=== PATIENT | male | born 1945 | race African-American/Black ===

== ENCOUNTER → 2022-06-10 12:29 | Outpatient (CLI) | payer MEDICARE, OTHER, SELFPAY ==
--- NOTE | ~2022-06-10 | MR_ITS ---
EXAMINATION: MR elbow LT wo con DATE: 06/10/2022 13:28 INDICATION: 2 months of medial sided left elbow pain TECHNIQUE: Magnetic resonance imaging (MRI) of the left elbow was performed without intravenous contr ast. Sequences included coronal, axial, and sagittal PD-weighted FS FSE and coronal, axial, and sagit semaj PD-weighted FSE. COMPARISON: None FINDINGS: Osseous/other: Normal alignment. No fracture. Small focus of subarticular edema-like marrow signal change along the medial side of the articular surface of the trochlea. Additional osteoarthritis with mild nonuniform cartilage loss with smooth chondral surface at the pro ximal radioulnar joint. Tendons: Triceps, biceps brachii and brachialis tendons are normal. There is focal increased signal of less t evans fluid intensity at the medial epicondylar origin of the common flexor tendon wad consistent with mild to moderate tendinopathy without definitive tear. The common extensor tendon wad is normal. Ligaments: The medial and lateral collateral ligament complexes are normal. Cubital tunnel: Cubital tunnel is unremarkable with normal signal and caliber of the ulnar nerve. Fluid: Physiologic amount of fluid the elbow joint. IMPRESSION: 1. Mild to moderate tendinopathy without discrete tear at the medial epicondylar origin of the common flexor tendon wad. 2. Mild osteoarthritis at the left elbow. Reviewed, dictated and finalized at location A. IMPRESSION: 1. Mild to moderate tendinopathy without discrete tear at the medial epicondyla r origin of the common flexor tendon wad. 2. Mild osteoarthritis at the left elbow.
== END ==
PROVIDERS: PCP Family Medicine; Visit Provider Specialist
DX: M19.022 Primary osteoarthritis, left elbow (principal)
CPT/HCPCS: 73221

== ENCOUNTER → 2022-10-20 12:40 | Outpatient (CLI) | payer MEDICARE, OTHER, SELFPAY ==
--- NOTE | ~2022-10-20 | XR_ITS ---
XR chest 2V DATE: 10/20/2022 12:56 INDICATION: Chronic cough for several years TECHNIQUE: 2 views COMPARISON: 08/06/2019 PA and lateral chest FINDINGS: Heart size is normal. Is aortic unfolding. No hilar or mediastinal enlargement. Bilateral hyperinflation. No pulmonary infiltrate or consolidation, pleural effusion or pulmonary vas cular congestion or pneumothorax. There is degenerative spurring of the thoracic spine. IMPRESSION: Moderate hyperinflation; no active cardiopulmonary disease Reviewed, dictated and finalized at location B. [employer]
== END ==
PROVIDERS: PCP Family Medicine; Visit Provider Physician Assistant
DX: R05.3 Chronic cough (principal); R91.8 Other nonspecific abnormal finding of lung field
CPT/HCPCS: 71046

== ENCOUNTER → 2023-01-12 12:21 | Outpatient (CLI) | payer MEDICARE, OTHER, SELFPAY ==
--- NOTE | ~2023-01-12 | MR_ITS ---
MRI of the left elbow CLINICAL HISTORY: Pain TECHNIQUE: Axial STIR, proton-density, and proton-density fat-sat images, coronal proton-density and STIR images, and sagittal proton-density and STIR images were performed. FINDINGS: Ulnar collateral ligament is intact. Radial collateral ligament and the lateral ulnar colla teral ligament are intact. There is minimal tendinosis at the common flexor tendon origin. Common ext ensor tendon origin is unremarkable. Bone marrow signals are essentially unremarkable. No osseous or articular abnormality evident at the elbow joint. No significant joint effusion. Biceps and brachialis tendons are intact. There is minimal tendinosis of the distal triceps tendon. T here is olecranon bursitis, with fluid distended bursa measuring approximately 3.5 cm in length, and 1.4 x 0.8 cm in transverse dimensions. IMPRESSION: Olecranon bursitis, as detailed above. Minimal tendinosis of the common flexor tendon origin and distal triceps tendon. Reviewed, dictated and finalized at location . 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 Minimal tendinosis of the common flexor tendon origin and distal triceps tendon .
== END ==
PROVIDERS: PCP Family Medicine; Visit Provider Specialist
DX: M25.522 Pain in left elbow (principal); M71.522 Other bursitis, not elsewhere classified, left elbow
CPT/HCPCS: 73221

== ENCOUNTER 2023-06-01 13:01 | Outpatient (CLI) | payer MEDICARE, OTHER, SELFPAY | END 2023-06-01 13:02 | disposition home or self-care (01) | LOC: ANHAUDIO 13:02 | PROVIDERS: PCP Family Medicine; Visit Provider Family Medicine | DX: H90.3 Sensorineural hearing loss, bilateral (principal) | CPT/HCPCS: 92557; 92567 ==

== ENCOUNTER 2023-09-10 13:35 | Outpatient (CLI) | payer MEDICARE, OTHER, SELFPAY ==
--- NOTE | ~2023-09-10 | US_ITS ---
EXAMINATION: US carotid duplex BI DATE: 09/10/2023 14:24 INDICATION: Transient cerebral ischemic attack TECHNIQUE: Grayscale, color Doppler, and pulsed Doppler images of the cervical carotid arteries were obtained. The degree of vessel stenosis is placed in one of the following categories: normal, <50%, 5 0-69%, >=70% but less than near-occlusion, near-occlusion, or total occlusion. Note that percent sten osis relative to normal distal artery lumen diameter is indirectly measured from velocity measurement s as described by Donte, et al. Radiology 2003; 229:340-346. Notes: Normal: Peak systolic velocity <125 centimeters/sec and no plaque <50%. Peak systolic velocity <125 ( EDV <40; ICA/CCA PSV ratio <2.0; used these factors only a tandem lesions or low cardiac output or co ntralateral disease) 50-69 %: PSV 125-230 (EDV 40-100; ratio 2-4) >= 70% but less than near occlusion: PSV greater than 230 (EDV > 100; ratio> 4.0) Near Occlusion: PSV that is variable; markedly narrowed lumen Occlusion: Absent flow on color/spectral Doppler and no lumen on coronel scale. COMPARISON: Ultrasound dated 01/22/2017. FINDINGS: RIGHT: The right common carotid artery (CCA) peak systolic velocity (PSV) is 96 cm/s. The right internal car otid artery (ICA) PSV is 108 cm/s. The right ICA end-diastolic velocity (EDV) is 31 cm/s. The right I CA/CCA PSV ratio is 1.4. The external carotid artery (ECA) PSV is 137 cm/s. There is antegrade flow i n the right vertebral artery. LEFT: The left CCA PSV is 98 cm/s. The left ICA PSV is 84 cm/s. The left ICA EDV is 22 cm/s. The left ICA/C CA PSV ratio is 1.2. The ECA PSV is 113 cm/s. There is antegrade flow in the left vertebral artery. IMPRESSION: 1. Less than 50% stenosis in the right internal carotid artery by sonographic criteria. 2. Less than 50% stenosis in the left internal carotid artery by sonographic criteria. Reviewed, dictated and finalized at location B. IMPRESSION: 1. Less than 50% stenosis in the right internal carotid artery by sonographic c willy. 2. Less than 50% stenosis in the left internal carotid artery by sonographic cr orly.
== END 2023-09-10 13:36 | disposition home or self-care (01) ==
PROVIDERS: PCP Family Medicine; Visit Provider Family Medicine
DX: I65.23 Occlusion and stenosis of bilateral carotid arteries (principal)
CPT/HCPCS: 93880

== ENCOUNTER 2024-08-29 12:15 | Emergency (ER) | payer MEDICARE, OTHER, SELFPAY ==
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
[2024-08-29 12:27] VITALS: PULSE 63; RESP 16; TEMP 36.2; O2SAT 100
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
== END 2024-08-29 15:07 | disposition home or self-care (01) ==
PROVIDERS: Emergency Provider Emergency Medicine; PCP Family Medicine
DX: S09.90XA Unspecified injury of head, initial encounter (principal); M54.2 Cervicalgia; W22.8XXA Striking against or struck by other objects, initial encounter
CPT/HCPCS: 70450; 72125; 99284

== ENCOUNTER 2025-01-15 14:00 | Emergency (ER) | payer MEDICARE, OTHER, SELFPAY ==
[2025-01-15 14:07] VITALS: BP 169/80; PULSE 94; RESP 18; TEMP 36.9; O2SAT 100
--- NOTE | 2025-01-15 16:23 | ED.NAVMDI ---
HPI - Nausea/Vomiting/Diarrhea General Chief complaint: Nausea/Vomiting/Diarrhea <Maye Sadler APRN - Last Filed: 01/15/25 16:30> Stated complaint: diarrhea <Maye Sadler APRN - Last Filed: 01/15/25 16:30> Time Seen by Provider: 01/15/25 16:15 <Maye Sadler APRN - Last Filed: 01/15/25 16:30> Focused HPI: Patient is a 79-year-old male who presents to the ER with complaints of abdominal discomfort, mild shortness of breath, back pain, increased weakness, nausea and diarrhea. He reports his symptoms started last night after drinking coffee and eating a piece of chocolate cake. Patient denies any chest pain, gastric reflux-like symptoms, recent fevers, urinary symptoms. He denies any medical history related to this ER visit and endorses only benign prostate hypertrophy. GENERAL: Well-appearing, well-nourished, and in no acute distress. HEAD: Normocephalic, atraumatic. CHEST: Clear to auscultation. ?No respiratory distress. HEART: Regular rate and rhythm.? NEURO: ?Alert and oriented x3. Patient screened in triage and initial orders placed.? ?Additional care and disposition to be based upon?diagnostic testing and treatment. <Maye Sadler APRN - Last Filed: 01/15/25 16:30> History of Present Illness HPI Narrative: 9-year-old male presents to the ED with at bedside for 1 day of N/V/D, generalized weakness and malaise. Patient reporting some abdominal discomfort and hiccuping/belching. He reports a cough that is nonproductive. Patient's at bedside states the patient has had several bouts of watery diarrhea that is foul smelling. He had a low-grade fever earlier today but that has since resolved. He has not taken anything for symptoms. He notes his was ill with COVID 2 weeks ago. He denies recent antibiotic use, travel, recent surgeries or hospitalizations, history of C diff. <Vania Hou PA-C - Last Filed: 01/15/25 19:04> Related Data Allergies/Adverse reactions: Allergies Allergy/AdvReac Type Severity Reaction Status Date / Time phenazopyridine Allergy Mild Unknown Verified 09/06/24 14:16 sulfamethoxazole Allergy Mild Unknown Verified 09/06/24 14:16 trimethoprim Allergy Mild Unknown Verified 09/06/24 14:16 latex Allergy Unknown Unknown Verified 09/06/24 14:16 sulfamethizole Allergy Unknown Unknown Verified 09/06/24 14:16 vardenafil Allergy Unknown Unknown Verified 09/06/24 14:16 <Maye Sadler, KIMBERLY - Last Filed: 01/15/25 16:30> Review of Systems Review of Systems: All systems reviewed & are unremarkable except as noted in HPI and below <Vania Hou PA-C - Last Filed: 01/15/25 19:04> PMFSH Past Medical History Medical History: Medical History Chronic cough Tinnitus, bilateral Elevated PSA Erectile dysfunction <Maye Sadler APRN - Last Filed: 01/15/25 16:30> Family History Family History: Family History Mother Lupus Mother Family history of lupus erythematosus <Maye Sadler APRN - Last Filed: 01/15/25 16:30> Social History Social History: Social History Smoking status: Never smoker Tobacco type: pipe and cigars Second hand tobacco smoke exposure: Yes Alcohol intake: current Alcohol use details: occasionally Substance use: former Substance use type: marijuana Living arrangements: with family Occupation/Education: retired Gender identity (if verbalized by the patient): Male Sexual Orientation (if Verbalized by the Patient): Straight or Heterosexual Spiritual care concerns: No <Maye Sadler, KIMBERLY - Last Filed: 01/15/25 16:30> Exam Narrative: GENERAL: Well-appearing, well-nourished, and in no acute distress. HEAD: Normocephalic, atraumatic. EYES: PERRLA and EOMI. ENT: Nares clear, no rhinorrhea or epistaxis. Mucous membranes moist. NECK: Supple. CHEST: Clear to auscultation. No respiratory distress. HEART: Regular rate and rhythm. No murmur heard. Normal peripheral pulses. ABDOMEN: Soft, nontender, nondistended, normal active bowel sounds. No rebound, guarding rigidity. No CVA tenderness EXTREMITIES: Normal range of motion. No edema. SKIN: Warm, dry, no rash. NEURO: No focal deficits. Alert and oriented x3 <Vania Hou PA-C - Last Filed: 01/15/25 19:04> Course Vital Signs Vital signs: Vital Signs Temperature 98.4 F 01/15/25 14:07 Pulse Rate 94 01/15/25 14:07 Respiratory Rate 18 01/15/25 14:07 Blood Pressure 169/80 H 01/15/25 14:07 Pulse Oximetry 100 01/15/25 14:07 Temperature 98.4 F 01/15/25 14:07 Pulse Rate 99 01/15/25 18:30 Respiratory Rate 22 H 01/15/25 18:30 Blood Pressure 151/81 H 01/15/25 18:29 Pulse Oximetry 100 01/15/25 18:30 <Maye Sadler APRN - Last Filed: 01/15/25 16:30> Vital Signs Temperature 98.4 F 01/15/25 14:07 Pulse Rate 94 01/15/25 14:07 Respiratory Rate 18 01/15/25 14:07 Blood Pressure 169/80 H 01/15/25 14:07 Pulse Oximetry 100 01/15/25 14:07 Temperature 98.4 F 01/15/25 14:07 Pulse Rate 99 01/15/25 18:30 Respiratory Rate 22 H 01/15/25 18:30 Blood Pressure 151/81 H 01/15/25 18:29 Pulse Oximetry 100 01/15/25 18:30 <Vania Hou PA-C - Last Filed: 01/15/25 19:04> MDM - Nausea/Vomiting/Diarrhea MDM Narrative Medical decision making narrative: 79-year-old male presents to the emergency department for generalized malaise, N/V/D for the past day. Vitals with elevated blood pressure 169/88, otherwise unremarkable. Exam significant for the above. Notably lung sounds are clear, abdomen is soft and nontender. Lab work obtained shows no leukocytosis or anemia. Chemistries are largely unremarkable. Lipase is normal. Viral swabs positive for COVID. EKG shows sinus rhythm with occasional PVCs, nonspecific T-wave abnormality, normal interval, normal QRS duration, normal QTC, otherwise no ischemic changes. Troponin is within normal limits. Chest x-ray shows coarse interstitial lung markings without focal infiltrate or effusion. His is bedside is requesting testing for C diff. Unfortunately patient was unable to provide a stool sample. He has no risk factors for C diff. Patient family updated on results. Patient received IV fluids, Zofran, GI cocktail and Pepcid with improvement. Discussed findings above. He does not appear to be fluid overloaded to explain the coarse interstitial markings on chest x-ray. I am concerned he may have findings consistent with atypical pneumonia given positive COVID results. Will start the patient on azithromycin and Augmentin and have him follow closely with his PCP. Return precautions discussed. He is agreeable with the plan verbalized understanding. Discharged in stable condition. <Vania Hou PA-C - Last Filed: 01/15/25 19:04> Lab Data Result diagrams: 01/15/25 16:37 01/15/25 16:37 <Maye Sadler APRN - Last Filed: 01/15/25 16:30> Labs: Lab Results 01/15/25 01/15/25 Range/Units 16:37 18:04 WBC 7.5 (4.5-10.0) K/mm3 RBC 4.56 L (4.6-6.20) M/mm3 Hgb 14.4 (14.0-18.0) g/dL Hct 42.4 (42.0-52.0) % MCV 93.0 (80-100) fl MCH 31.6 (26-34) pg MCHC 34.0 (32-36) g/dl RDW 13.0 (11.5-14.5) % Plt Count 209 (150-375) k/mm3 MPV 8.7 (7.4-10.4) fl Immature Gran % (Auto) Not Reportable Neut % (Auto) Not Reportable Lymph % (Auto) Not Reportable [place] % (Auto) Not Reportable Eos % (Auto) Not Reportable Baso % (Auto) Not Reportable Lymph # (Auto) Not Reportable [place] # (Auto) Not Reportable Eos # (Auto) Not Reportable Baso # (Auto) Not Reportable Abs Immat Gran (auto) Not Reportable Absolute Neuts (auto) Not Reportable Absolute Nucleated RBC Not Reportable Total Counted 100 Neutrophils % (Manual) 95 H (46-73) % Band Neutrophils % 3 (0-6) % Lymphocytes % (Manual) 1.0 L (18-44) % Monocytes % (Manual) 1 L (3-9) % Nucleated RBC % Not Reportable Abs Neuts (Manual) 7.35 H (1.3-6.7) K/mm3 Abs Lymphs (Manual) 0.07 L (1.1-4.5) K/mm3 Abs Monocytes (Manual) 0.07 L (0.1-0.90) K/mm3 Platelet Estimate Adequate (Adequate) Schistocytes None seen Sodium 139 (137-145) mmol/L Potassium 4.5 (3.4-5.0) mmol/L Chloride 102 (98-107) mmol/L Carbon Dioxide 24 (22-30) mmol/L Anion Gap 13 H (4-12) mmol/L BUN 15 (9-20) mg/dL Creatinine 0.86 (0.7-1.3) mg/dL Estim Creat Clear Calc 61 ml/min Estimated GFR > 60 (59 - ) Glucose 152 H (65-110) mg/dL Calcium 9.0 (8.4-10.2) mg/dL Total Bilirubin 0.7 (0.2-1.3) mg/dL AST 30 (17-59) U/L ALT 34 (6-50) U/L Alkaline Phosphatase 50 (38-126) U/L Troponin I < 0.012 (0.000-0.034) ng/mL Total Protein 8.0 (6.3-8.2) g/dL Albumin 4.4 (3.5-5.1) g/dL Lipase 28 (23-300) U/L Urine Color Yellow (Yellow) Urine Appearance Cloudy H (Clear) Urine pH 5.0 (5.0-9.0) Ur Specific [place] 1.033 (1.001-1.035) Urine Protein 1+ H (Negative) mg/dL Urine Glucose (UA) Trace H (Negative) mg/dL Urine Ketones Trace H (Negative) mg/dL Ur Blood (Man) Negative (Negative) Urine Nitrate Negative (Negative) Urine Bilirubin Negative (Negative) Urine Urobilinogen 0.2 (<2.0) mg/dL Leukocyte Esterase Rfl Negative (Negative) RALPH/UL Urine RBC 0-2 (0-2) /hpf Urine WBC 0-5 (0-3) /hpf Ur Squamous Epith Cells None seen (Few) /hpf Urine Bacteria None seen /hpf Urine Casts 0-2 Influenza A (RT-PCR) Negative (Negative) Influenza B (RT-PCR) Negative (Negative) RSV (RT-PCR) Negative (Negative) SARS-CoV-2 RNA (RT-PCR) Positive A (Negative) <Maye Sadler, [employer] - Last Filed: 01/15/25 16:30> Lab Results 01/15/25 01/15/25 Range/Units 16:37 18:04 WBC 7.5 (4.5-10.0) K/mm3 RBC 4.56 L (4.6-6.20) M/mm3 Hgb 14.4 (14.0-18.0) g/dL Hct 42.4 (42.0-52.0) % MCV 93.0 (80-100) fl MCH 31.6 (26-34) pg MCHC 34.0 (32-36) g/dl RDW 13.0 (11.5-14.5) % Plt Count 209 (150-375) k/mm3 MPV 8.7 (7.4-10.4) fl Immature Gran % (Auto) Not Reportable Neut % (Auto) Not Reportable Lymph % (Auto) Not Reportable [place] % (Auto) Not Reportable Eos % (Auto) Not Reportable Baso % (Auto) Not Reportable Lymph # (Auto) Not Reportable [place] # (Auto) Not Reportable Eos # (Auto) Not Reportable Baso # (Auto) Not Reportable Abs Immat Gran (auto) Not Reportable Absolute Neuts (auto) Not Reportable Absolute Nucleated RBC Not Reportable Total Counted 100 Neutrophils % (Manual) 95 H (46-73) % Band Neutrophils % 3 (0-6) % Lymphocytes % (Manual) 1.0 L (18-44) % Monocytes % (Manual) 1 L (3-9) % Nucleated RBC % Not Reportable Abs Neuts (Manual) 7.35 H (1.3-6.7) K/mm3 Abs Lymphs (Manual) 0.07 L (1.1-4.5) K/mm3 Abs Monocytes (Manual) 0.07 L (0.1-0.90) K/mm3 Platelet Estimate Adequate (Adequate) Schistocytes None seen Sodium 139 (137-145) mmol/L Potassium 4.5 (3.4-5.0) mmol/L Chloride 102 (98-107) mmol/L Carbon Dioxide 24 (22-30) mmol/L Anion Gap 13 H (4-12) mmol/L BUN 15 (9-20) mg/dL Creatinine 0.86 (0.7-1.3) mg/dL Estim Creat Clear Calc 61 ml/min Estimated GFR > 60 (59 - ) Glucose 152 H (65-110) mg/dL Calcium 9.0 (8.4-10.2) mg/dL Total Bilirubin 0.7 (0.2-1.3) mg/dL AST 30 (17-59) U/L ALT 34 (6-50) U/L Alkaline Phosphatase 50 (38-126) U/L Troponin I < 0.012 (0.000-0.034) ng/mL Total Protein 8.0 (6.3-8.2) g/dL Albumin 4.4 (3.5-5.1) g/dL Lipase 28 (23-300) U/L Urine Color Yellow (Yellow) Urine Appearance Cloudy H (Clear) Urine pH 5.0 (5.0-9.0) Ur Specific [place] 1.033 (1.001-1.035) Urine Protein 1+ H (Negative) mg/dL Urine Glucose (UA) Trace H (Negative) mg/dL Urine Ketones Trace H (Negative) mg/dL Ur Blood (Man) Negative (Negative) Urine Nitrate Negative (Negative) Urine Bilirubin Negative (Negative) Urine Urobilinogen 0.2 (<2.0) mg/dL Leukocyte Esterase Rfl Negative (Negative) RALPH/UL Urine RBC 0-2 (0-2) /hpf Urine WBC 0-5 (0-3) /hpf Ur Squamous Epith Cells None seen (Few) /hpf Urine Bacteria None seen /hpf Urine Casts 0-2 Influenza A (RT-PCR) Negative (Negative) Influenza B (RT-PCR) Negative (Negative) RSV (RT-PCR) Negative (Negative) SARS-CoV-2 RNA (RT-PCR) Positive A (Negative) <Vania Hou PA-C - Last Filed: 01/15/25 19:04> Discharge Plan Discharge Clinical Impression: COVID-19 CAP (community acquired pneumonia) Qualifiers: Laterality: unspecified laterality Qualified Code(s): J18.9 - Pneumonia, unspecified organism <Maye Sadler APRN - Last Filed: 01/15/25 16:30> Patient Disposition: Home, Self-Care <Maye Sadler APRN - Last Filed: 01/15/25 16:30> Condition: Stable <Maye Sadlre APRN - Last Filed: 01/15/25 16:30> Instructions: Antibiotic Form, Pneumonia (ED), COVID-19 (Coronavirus Disease 2019) (ED) <Maye Sadler APRN - Last Filed: 01/15/25 16:30> Additional Instructions: You tested positive today for COVID. Chest x-ray shows abnormal findings which may be consistent with an atypical pneumonia as discussed. You have been treated for pneumonia with antibiotics, please take these as directed. Drink plenty of fluids including water, Gatorade and Pedialyte. Take Tylenol as needed for body aches and fevers. I have also provided Pepcid for indigestion, take this as directed. Return to the emergency department if you are unable to tolerate food or fluids, developed worsening cough or shortness of breath, or other concerning symptoms. <Maye Sadler APRN - Last Filed: 01/15/25 16:30> Patient Language: [place] <Maye Sadler APRN - Last Filed: 01/15/25 16:30> Prescriptions: New amoxicillin-pot clavulanate 875-125 mg tablet 1 tablet PO Q12H Qty: 14 0RF azithromycin 250 mg tablet See Rx Instructions .ROUTE .COMPLEX Qty: 6 0RF Rx Instructions: For 250 mg dose pack: take 500 mg today (day 1), then 250 mg for 4 days (days 2-5) famotidine 20 mg tablet 20 mg PO DAILY Qty: 14 0RF No Action albuterol sulfate [Ventolin HFA] 90 mcg/actuation HFA aerosol inhaler 1 puff inhalation Q4H PRN (Reason: shortness of breath or wheezing) Qty: 8.5 0RF <Maye Sadler APRN - Last Filed: 01/15/25 16:30> Follow-up/Referrals: Jarrell Chandra MD [Primary Care Provider] - <Maye Sadler APRN - Last Filed: 01/15/25 16:30>
[2025-01-15 16:44] LABS: Hematocrit 42.4 % (42.0-52.0); Hemoglobin 14.4 g/dL (14.0-18.0); Mean Corpuscular Hemoglobin 31.6 pg (26-34); Mean Platelet Volume 8.7 fl (7.4-10.4); Platelet Count Result 209 k/mm3 (150-375); Red Blood Count 4.56 M/mm3 (4.6-6.20); White Blood Count 7.5 K/mm3 (4.5-10.0)
[2025-01-15 16:53] LABS: Alanine Aminotransferase 34 U/L (6-50); Albumin Level 4.4 g/dL (3.5-5.1); Alkaline Phosphatase 50 U/L (38-126); Anion Gap 13 mmol/L (4-12); Aspartate Amino Transferase 30 U/L (17-59); Bilirubin,Total 0.7 mg/dL (0.2-1.3); Blood Urea Nitrogen 15 mg/dL (9-20); Carbon Dioxide 24 mmol/L (22-30); Chloride 102 mmol/L (98-107); Estimated CRCL calculation 61 ml/min; Estimated Glomerular Filt Rate > 60; Glucose 152 mg/dL (65-110); Lipase 28 U/L (23-300); Potassium 4.5 mmol/L (3.4-5.0); Sodium 139 mmol/L (137-145)
[2025-01-15 17:05] VITALS: BP 160/93; PULSE 96; RESP 18; O2SAT 100
[2025-01-15 17:05] LABS: Troponin I < 0.012 ng/mL (0.000-0.034)
[2025-01-15 17:09] LABS: Band Neutrophils Percent 3 % (0-6); Lymphocytes Absolute Manual 0.07 K/mm3 (1.1-4.5); Monocytes Absolute Manual 0.07 K/mm3 (0.1-0.90); Monocytes Percent Manual 1 % (3-9); Neutrophils Absolute Manual 7.35 K/mm3 (1.3-6.7); Neutrophils Percent Manual 95 % (46-73); Total Cells Counted 100
[2025-01-15 17:10] LABS: Platelet Estimate Adequate (Adequate)
[2025-01-15 17:12] LABS: Schistocytes None Seen
[2025-01-15 17:26] LABS: Influenza A QL RT-PCR Negative (Negative); Influenza B QL RT-PCR Negative (Negative); RSV RNA, RT-PCR Negative (Negative); SARS-CoV-2 RNA PCR Positive (Negative)
[2025-01-15 18:05] VITALS: PULSE 96; RESP 22; O2SAT 100
[2025-01-15 18:13] LABS: Add Urine Microscopic? YES; Appearance Urine Cloudy (Clear); Bacteria Urine None Seen /hpf; Bilirubin Urine Negative (Negative); Blood Urine Negative (Negative); Color Urine Yellow (Yellow); Glucose Urine UA Trace mg/dL (Negative); Ketones Urine Trace mg/dL (Negative); Leukocyte Esterase Ur Negative LEU/UL (Negative); Nitrate Urine Negative (Negative); Non Pathogenic Casts 0-2; Protein Urine 1+ mg/dL (Negative); RBC Urine 0-2 /hpf (0-2); Specific Grav Ur 1.033 (1.001-1.035); Squamous Epithelial Cell Urine None Seen /hpf (Few); Urobilinogen Urine 0.2 mg/dL (<2.0); WBC Urine 0-5 /hpf (0-3)
[2025-01-15 18:15] VITALS: PULSE 99; RESP 21; O2SAT 100
[2025-01-15 18:29] VITALS: BP 151/81; PULSE 100; RESP 22; O2SAT 100
[2025-01-15] MEDS: SODIUM CHLORIDE 0.9% IV 1,000 ML 999 ML IV CONT (18:29)
[2025-01-15] MEDS: ONDANSETRON INJ 4 MG/2 ML VIAL IV PUSH (18:29)
[2025-01-15] MEDS: BELLADONNA ALK/PHENOB ELIX 10 ML, MAG HYDROX/ALUMINUM HYD/SIMETH 30 ML, LIDOCAINE 2% VI... PO (18:29)
[2025-01-15] MEDS: FAMOTIDINE 20 MG/2 ML VIAL IV PUSH (18:29)
[2025-01-15 18:30] VITALS: PULSE 99; RESP 22; O2SAT 100
== END 2025-01-15 19:26 | disposition home or self-care (01) ==
PROVIDERS: Registered Nurse; Emergency Provider Physician Assistant; PCP Family Medicine
DX: U07.1 COVID-19 (principal); J18.9 Pneumonia, unspecified organism; Z77.22 Contact with and (suspected) exposure to environmental tobacco smoke (acute) (chronic); I49.3 Ventricular premature depolarization; R94.31 Abnormal electrocardiogram [ECG] [EKG]
CPT/HCPCS: 36415; 71045; 80053; 81001; 83690; 84484; 85025; 87637; 93005; 96361; 96374; 96375; 99284; A9270; J2405; J7030

== ENCOUNTER 2025-09-18 00:41 | Day surgery (SDC) | payer MEDICARE, OTHER, SELFPAY ==
[2025-09-13 13:31] VITALS: BMI 24.8
[2025-09-18 09:45] VITALS: BP 130/71; PULSE 65; RESP 18; TEMP 36.3; O2SAT 100
[2025-09-18] MEDS: LACTATED RINGERS 1,000 ML 150 ML IV CONT (09:56)
--- NOTE | 2025-09-18 10:15 | WPDANESEPPF ---
Anes - Initial Pre Proc Eval Procedure: Operation Date: 09/18/25 11:00 Proposed Procedures p Screening Colonoscopy - Baltazar Kwong MD Date/Time: 09/18/25 10:15 Surgeon: Baltazar Kwong MD Pre Op Diagnosis: Encounter for screening for malignant neoplasm of Patient Data Age: 80 Gender: M Height: 1.7 m Weight: 70 kg Last Vital Signs Temp 97.3 F L 09/18/25 09:45 Pulse 65 09/18/25 09:45 Resp 18 09/18/25 09:45 BP 130/71 09/18/25 09:45 Pulse Ox 100 09/18/25 09:45 O2 Del Method Room Air 09/18/25 09:45 Allergies Allergy/AdvReac Type Severity Reaction Status Date / Time phenazopyridine Allergy Mild Unknown Verified 09/18/25 09:44 sulfamethoxazole Allergy Mild Unknown Verified 09/18/25 09:44 trimethoprim Allergy Mild Unknown Verified 09/18/25 09:44 sulfamethizole Allergy Unknown Unknown Verified 09/18/25 09:44 vardenafil Allergy Unknown Unknown Verified 09/18/25 09:44 Home Medications ?Medication ?Instructions ?Recorded ?Confirmed ?Type albuterol sulfate 90 mcg/actuation 1 puff inhalation Q4H PRN 04/27/23 09/13/25 Rx aerosol inhaler (Ventolin HFA) shortness of breath or wheezing #8.5 grams finasteride 5 mg tablet 5 mg PO DAILY 09/13/25 09/13/25 History Patient hx anesthesia problems: none Family hx anesthesia problems: none Results Review: All pre-operative results and documents have been reviewed as part of the pre-operative evaluation. [facility], [facility] Past Medical History Medical History Chronic cough Tinnitus, bilateral Elevated PSA Erectile dysfunction Family History Family History Mother Lupus Mother Family history of lupus erythematosus Social History Social History Social History: Years smoked: 3 Smoking status: Former smoker Tobacco type: cigarettes Second hand tobacco smoke exposure: Yes Alcohol intake: current Alcohol use details: Rarely Substance use: former Substance use type: does not use Current Housing: I Have Housing Concerned About Future Housing: No Difficulty Paying Gas/Electric Bills: No Difficulty Paying for Meds: No Currently Unemployed: YES Education: Don't Know Difficulty w/ Childcare or Family Care: No Living arrangements: with family Additional living arrangements comments: with sp Occupation/Education: retired Gender identity (if verbalized by the patient): Male Sexual Orientation (if Verbalized by the Patient): Straight or Heterosexual Spiritual care concerns: No Anes - Eval Final PreProcedure Day of Procedure 09/18/25 10:15 Patient weight: normal Lungs: normal air movement Airway: Mallampati scale class II and special considerations (Partial upper and lower removed. ) Neurological: alert and oriented Last oral intake: >/= 8 hours ASA classification: II Emergent: no Anesthetic plan: proceed Anesthesia type and monitoring: general GIVS Results Review: All pre-operative results and documents have been reviewed as part of the pre-operative evaluation. JED on CPAP, mild asthma but very stable. Pt active w working at [employer], walking a lot there, no cp or sob. Informed Consent: The patient's anesthetic plan and its attendant risks and benefits were discussed with the patient/family/POA. Questions were solicited and answers provided to the satisfaction of the patient/family/POA.
--- NOTE | 2025-09-18 10:19 | PM.IMHP ---
H&P: HPI History of Present Illness Date/Time: 09/18/25 10:19 Chief Complaint: Screening colonoscopy Narrative: This is the patient's 2nd screening colonoscopy. The first one was 10 years ago. There are no GI symptoms and there is no family history of colorectal cancer. Review of Systems Review of Systems: All systems reviewed & are unremarkable except as noted in HPI and below PMFSH Past Medical History Medical History Chronic cough Tinnitus, bilateral Elevated PSA Erectile dysfunction Family History Family History Mother Lupus Mother Family history of lupus erythematosus Social History Social History Social History: Years smoked: 3 Smoking status: Former smoker Tobacco type: cigarettes Second hand tobacco smoke exposure: Yes Alcohol intake: current Alcohol use details: Rarely Substance use: former Substance use type: does not use Current Housing: I Have Housing Concerned About Future Housing: No Difficulty Paying Gas/Electric Bills: No Difficulty Paying for Meds: No Currently Unemployed: YES Education: Don't Know Difficulty w/ Childcare or Family Care: No Living arrangements: with family Additional living arrangements comments: with sp Occupation/Education: retired Gender identity (if verbalized by the patient): Male Sexual Orientation (if Verbalized by the Patient): Straight or Heterosexual Spiritual care concerns: No Meds Home Medications and Allergies Home Medications ?Medication ?Instructions ?Recorded ?Confirmed ?Type albuterol sulfate 90 mcg/actuation 1 puff inhalation Q4H PRN 04/27/23 09/13/25 Rx aerosol inhaler (Ventolin HFA) shortness of breath or wheezing #8.5 grams finasteride 5 mg tablet 5 mg PO DAILY 09/13/25 09/13/25 History Allergies Allergy/AdvReac Type Severity Reaction Status Date / Time phenazopyridine Allergy Mild Unknown Verified 09/18/25 09:44 sulfamethoxazole Allergy Mild Unknown Verified 09/18/25 09:44 trimethoprim Allergy Mild Unknown Verified 09/18/25 09:44 sulfamethizole Allergy Unknown Unknown Verified 09/18/25 09:44 vardenafil Allergy Unknown Unknown Verified 09/18/25 09:44 Vital Signs Vital Signs - 24 hr 09/18/25 09:45 Temperature 97.3 F L Pulse Rate 65 Respiratory Rate 18 Blood Pressure 130/71 Pulse Oximetry 100 Oxygen Delivery Room Air Exam Const: General: cooperative and healthy appearing Resp: Effort & Inspection: normal respiratory effort and able to speak in complete sentences Auscultation: clear to auscultation bilaterally Cardio: Rate: regular rate Rhythm: regular rhythm GI: Inspection: normal to inspection GI Palp: No No hepatosplenomegaly present Auscultation: normal bowel sounds Rectal Exam: deferred Skin: General skin exam: normal color Psych: Appearance: grossly normal Mental Status: mental status grossly normal Assessment and Plan Assessment and plan (1) Colon cancer screening: Code(s): Z12.11 - Encounter for screening for malignant neoplasm of colon Status: Acute Assessment and Plan: The patient is deemed a good candidate for the procedure. Consent signed. Will proceed.
--- NOTE | 2025-09-18 11:09 | S_PTH ---
PATIENT: Eliseo Martínez Sr. LOC: [facility] Fam#:[id number] AGE/SX: 80/M ROOM: RE09/18/[address]: Baltazar Kwong MD : 1945 BED: DIS: 09/18/2025 SPEC #: [id number] RECD: 09/18/25 13:23 STATUS: ENOC REMario #: [id number] BRIJESH: 09/18/25 11:[address]: Baltazar Kwong DEPT: [facility] Surgical RECD BY: Kye Crawford ENTERED: 09/18/25 13:23 SP TYPE: Surgical OTHR DR: Jarrell Chandra MD Tissues: A - Colon Polypectomy B - Colon Polypectomy Procedures: Hematoxylin and Eosin Stain Gross and Microscopic Level 4
[2025-09-18 11:12] VITALS: BP 99/68; PULSE 84; RESP 16; O2SAT 100
[2025-09-18 11:22] VITALS: BP 113/71; PULSE 67; RESP 17; O2SAT 100
[2025-09-18 11:32] VITALS: BP 128/81; PULSE 60; RESP 16; O2SAT 100
== END 2025-09-18 11:45 | disposition home or self-care (01) ==
PROVIDERS: PCP Family Medicine; Referring Provider Family Medicine; Visit Provider Internal Medicine Gastroenterology
PROC: 0DJD8ZZ Inspection of Lower Intestinal Tract, Via Natural or Artificial Opening Endoscopic (ICD-10-PCS; CPT 45378; principal; 2025-09-18 11:00)
DX: Z12.11 Encounter for screening for malignant neoplasm of colon (principal); D12.2 Benign neoplasm of ascending colon; D12.3 Benign neoplasm of transverse colon; K64.8 Other hemorrhoids; K57.30 Diverticulosis of large intestine without perforation or abscess without bleeding; J45.909 Unspecified asthma, uncomplicated; G47.33 Obstructive sleep apnea (adult) (pediatric); R05.3 Chronic cough; N52.9 Male erectile dysfunction, unspecified; Z79.51 Long term (current) use of inhaled steroids; Z99.89 Dependence on other enabling machines and devices; Z87.891 Personal history of nicotine dependence
CPT/HCPCS: 45385; 88305; J2003; J2704; J7120